=== PATIENT | male | born 1950 ===

== ENCOUNTER 2019-07-31 14:31 | Emergency (ER) | payer OTHER ==
[~2019-07-31] VITALS: Ht 162.6 cm; Wt 76.2 kg
[2019-07-31] MEDS ORDERED: TESSALON PERLE100 M1 PO (20:44)
[2019-07-31] MEDS ORDERED: MUCINEX DM ER1 EAC1 PO (20:44)
[2019-07-31] MEDS ORDERED: MEDROLPACK PO (20:44)
[2019-07-31] MEDS ORDERED: XOPENEX CO1.25 MG/0. IH (20:44)
[2019-07-31] MEDS ORDERED: BUDESONIDE0.5 MG/2 M IH (20:44)
[2019-07-31] MEDS ORDERED: LEVAQUIN750 MG PO (20:44)
[2019-07-31] MEDS ORDERED: RESPTHERAMACH IH (20:47)
== END 2019-07-31 22:28 | disposition home or self-care (01) ==
LOC: ER 14:31
DX: J20.9 Acute bronchitis, unspecified (principal); J06.9 Acute upper respiratory infection, unspecified

== ENCOUNTER 2019-11-09 15:16 | Emergency (ER) | payer OTHER ==
[~2019-11-09] VITALS: Ht 162.6 cm; Wt 77.1 kg
[~2019-11-09 15:16] MED LIST: BUDESONIDE0.5 MG/2 M IH; LEVAQUIN750 MG PO; MEDROLPACK PO; MUCINEX DM ER1 EAC1 PO; RESPTHERAMACH IH; TESSALON PERLE100 M1 PO; XOPENEX CO1.25 MG/0. IH
[2019-11-09] MEDS ORDERED: ZESTRIL40 M1 PO (15:25)
[2019-11-09] MEDS ORDERED: TOPROL XL25 M1 PO (15:26)
[2019-11-09] MEDS ORDERED: PROTONIX40 MG (15:26)
[2019-11-09] MEDS ORDERED: ZANTAC 7575 MG PO (15:26)
[2019-11-09] MEDS ORDERED: SIMVASTATIN80 MG (15:27)
[2019-11-09] MEDS ORDERED: PROSCAR5 MG PO (15:27)
[2019-11-09] MEDS ORDERED: ASPIR 8181 MG PO (15:27)
[2019-11-09] MEDS ORDERED: TUSNEL LIQUID178 ML PO (18:11)
[2019-11-09] MEDS ORDERED: CLARITIN10 MG PO (18:11)
== END 2019-11-09 18:36 | disposition home or self-care (01) ==
LOC: ER 15:16
DX: J00 Acute nasopharyngitis [common cold] (principal)

== ENCOUNTER 2021-05-20 14:24 | Emergency (ER) | payer OTHER ==
[~2021-05-20] VITALS: Ht 162.6 cm; Wt 77.1 kg
[~2021-05-20 14:24] MED LIST changes: +ASPIR 8181 MG PO; +CLARITIN10 MG PO; +PROSCAR5 MG PO; +PROTONIX40 MG; +SIMVASTATIN80 MG; +TOPROL XL25 M1 PO; +TUSNEL LIQUID178 ML PO; +ZANTAC 7575 MG PO; +ZESTRIL40 M1 PO
[2021-05-20] MEDS ORDERED: NORVASC5 MG (14:38)
== END 2021-05-20 17:18 | disposition home or self-care (01) ==
LOC: ER 14:24
DX: H10.13 Acute atopic conjunctivitis, bilateral (principal); I10 Essential (primary) hypertension

== ENCOUNTER 2022-05-27 19:15 | Emergency (ER) | payer OTHER ==
[~2022-05-27] VITALS: Ht 161.3 cm; Wt 76.2 kg
[~2022-05-27 19:15] MED LIST changes: +NORVASC5 MG
[2022-05-27] MEDS ORDERED: METOPROLOL SUCC50 MG PO (20:03)
[2022-05-27] MEDS ORDERED: BACTRIM DS TAB1 EACH PO (20:43)
== END 2022-05-27 21:23 | disposition home or self-care (01) ==
LOC: ER 19:15
DX: L02.212 Cutaneous abscess of back [any part, except buttock and flank] (principal); M25.562 Pain in left knee; I10 Essential (primary) hypertension

== ENCOUNTER 2023-05-05 19:52 | Inpatient (IN) | payer OTHER ==
[~2023-05-05] VITALS: Ht 165.1 cm; Wt 68.0 kg
[~2023-05-05 19:52] MED LIST changes: +BACTRIM DS TAB1 EACH PO; +GABAPENTIN400 MG PO; +METOPROLOL SUCC50 MG PO; +PLAVIX75 MG PO; +ZESTRIL5 MG PO
[2023-05-06] MEDS ORDERED: ENDOCET 5-3251 EACH (10:12)
[2023-05-06] MEDS ORDERED: ALPRAZOLAM2 MG (10:12)
[2023-05-06] MEDS ORDERED: ROSUVASTATIN CA20 MG (10:13)
== END 2023-05-11 21:51 | disposition home or self-care (01) | DRG 603 ==
LOC: ER 19:52 → MEDJ 22:20 → MEDI 05-07 11:03
PROVIDERS: ADMIT Specialist; ATTEND Specialist
PROC: 0HB7XZZ Excision of Abdomen Skin, External Approach (ICD-10-PCS; principal; 2023-05-06)
PROC: 0HB7XZZ Excision of Abdomen Skin, External Approach (ICD-10-PCS; 2023-05-10)
DX: L02.211 Cutaneous abscess of abdominal wall (principal); L03.311 Cellulitis of abdominal wall; L98.493 Non-pressure chronic ulcer of skin of other sites with necrosis of muscle; B95.61 Methicillin susceptible Staphylococcus aureus infection as the cause of diseases classified elsewhere; I25.10 Atherosclerotic heart disease of native coronary artery without angina pectoris; F17.210 Nicotine dependence, cigarettes, uncomplicated; I13.10 Hypertensive heart and chronic kidney disease without heart failure, with stage 1 through stage 4 chronic kidney disease, or unspecified chronic kidney disease; N18.9 Chronic kidney disease, unspecified; Z22.322 Carrier or suspected carrier of Methicillin resistant Staphylococcus aureus; Z95.5 Presence of coronary angioplasty implant and graft